=== PATIENT | female | born 1970 | race Hispanic/Latino ===

== ENCOUNTER 2017-11-30 20:00 | Emergency (ER) | payer MEDICAID, OTHER ==
[2017-11-30 20:49] LABS: APPEARANCE,URINE Clear (CLEAR); BILIRUBIN,URINE Negative (NEGATIVE); COLOR,URINE Yellow (YELLOW); GLUCOSE, URINE (UA) Negative (NEGATIVE); KETONES,URINE Trace mg/dL (NEGATIVE); LEUKOCYTE ESTERASE ,URINE Negative (NEGATIVE); NITRATE,URINE Negative (NEGATIVE); OCCULT BLOOD,URINE Large (NEGATIVE); PH,URINE 5.5 (5.0-8.0); PROTEIN,URINE POS 1+ (NEGATIVE); UROBILINOGEN,URINE 0.2 mg/dL (0.2-1.0)
[2017-11-30 20:56] LABS: BACTERIA,URINE None Seen /HPF (None Seen); MUCUS,URINE Many LPF (None Seen); SQUAMOUS EPITHELIAL CELL,UR 0-2 /LPF (0-2); WBC,URINE None Seen /HPF (0-1)
[2017-11-30] MEDS ORDERED: IBUPROFEN 600 MG TABLET ONE (21:12)
== END 2017-11-30 21:27 | disposition home or self-care (01) ==
LOC: EDH 20:00
DX: J11.1 Influenza due to unidentified influenza virus with other respiratory manifestations (principal)
CPT/HCPCS: 81001; 87804

== ENCOUNTER 2019-07-01 18:36 | Inpatient (IN) | payer MEDICAID, OTHER ==
[~2019-07-01] VITALS: Ht 157.5 cm; Wt 74.3 kg
[2019-07-01] MEDS ORDERED: CEFAZOLIN SODIUM 1 GM VIAL ONE (19:44)
[2019-07-01] MEDS ORDERED: ONDANSETRON HCL 4 MG/2 ML VIAL ONE (19:44)
[2019-07-01] MEDS ORDERED: SODIUM CHLORIDE 0.9% 50 ML IV ONE (19:45)
[2019-07-01] MEDS ORDERED: MORPHINE SULFATE 4 MG/1ML SYG ONE (19:45)
[2019-07-01] MEDS ORDERED: SODIUM CHLORIDE 0.9% 1000ML 1,000 ML IV ONE (19:45)
[2019-07-01] MEDS ORDERED: TETANUS/DIPHTHERIA TOXOID [ADULT] 0.5 ML VIAL IM ONE (19:47)
[2019-07-01 19:52] LABS: BASOPHILS % (AUTO) 0.3 % (0.0-5.0); EOSINOPHILS % (AUTO) 1.7 % (0.0-8.0); HEMATOCRIT 35.1 % (36-48); LYMPHOCYTES % (AUTO) 24.7 % (21.0-51.0); MEAN CORPUSCULAR HEMOGLOBIN 30.2 pg (27.0-33.0); MEAN CORPUSCULAR HGB CONC 34.5 g/dL (32.0-36.0); MEAN CORPUSCULAR VOLUME 87.7 fL (79-99); MONOCYTES % (AUTO) 7.2 % (3.0-13.0); NEUTROPHILS % (AUTO) 66.1 % (40.0-77.0); PLATELET COUNT (AUTO) 266 K/uL (130-400); RED BLOOD CELL COUNT(AUTO) 4.01 MIL/uL (4.00-5.50); RED CELL DISTRIBUTION WIDTH 13.8 % (11.0-15.5); WHITE BLOOD COUNT (AUTO) 7.1 K/uL (4.8-10.8)
[2019-07-01 20:01] LABS: CREATININE 0.8 mg/dL (0.5-1.5); POTASSIUM 3.2 mmol/L (3.5-5.1)
[2019-07-01 20:05] LABS: INR 0.97 (0.85-1.15); PARTIAL THROMBOPLASTIN TIME 25.6 SEC (26.3-35.5); PROTHROMBIN TIME 10.2 SEC (9.6-11.6)
[2019-07-01] MEDS ORDERED: POTASSIUM BICARB/CIT AC 25 MEQ TABLET.EFF ONE (20:51)
--- NOTE | 2019-07-01 22:45 | NUR ---
ADMISSION NOTE ADMIT TO ROOM 404 VIA W/C FROM ER. PATIENT AWAKE, ALERT, OX3,NO SOB, NO C/O PAIN AT THIS TIME, LEFT HAND MIDDLE FINGER DRESSING D/I, KEEP LEFT HAND ELEVATED ON PILLOW, PATIENTS SON AT BEDSIDE, TEACH PLAN OF CARE AND EXPECTED OUTCOME,TEACH PATIENT AND FAMILY NPO STATUS PAST MIDNITE,PATIENT VERBALIZES UNDERSTANDING VIA TEACH BACK, CALL [facility]OUNT AT REACH
[2019-07-01 22:50] VITALS: BP 145/75
[2019-07-02] VITALS (21 sets, daily range): BP systolic 106–158; BP diastolic 57–94
[2019-07-02] MEDS ORDERED: ACETAMINOPHEN-CODEINE 300/30MG TAB PO PRN (05:30)
[2019-07-02] MEDS: MORPHINE SULFATE 2 MG/ML 1ML SYG IVP PRN ×2 (05:49→15:05)
[2019-07-02] MEDS: CEFAZOLIN SODIUM 1 GM VIAL IVP SCH (09:06)
--- NOTE | 2019-07-02 13:10 | NUR ---
[facility] CM met with pt discussed dc plans. Pt is independent prior to admission, lives at home with spouse and daugher. Denies any equipments/services. Pt feels safe to go back home, spouse able to assist with transportation and needs as necessary. Pt is a selfpay, [facility] assisting, given community resources packet. DC plan to home once stable. CM to cont to follow up. Addendum: 07/02/19 at 1311 by SHELDON SORENSEN LVN CM Amended: Links added.
[2019-07-02] MEDS ORDERED: LIDOCAINE PF 2% 5ML ABBOJECT ONE (16:24)
[2019-07-02] MEDS ORDERED: MIDAZOLAM HCL 1 MG/ML 2ML VIAL ONE (16:24)
[2019-07-02] MEDS ORDERED: PROPOFOL 10 MG/ML 20ML VIAL IV ONE (16:25)
[2019-07-02] MEDS ORDERED: FENTANYL CITRATE PF 50 MCG/1 ML 2ML VIAL ONE (16:25)
[2019-07-02] MEDS ORDERED: GLYCOPYRROLATE 1 MG/5 ML SYRINGE ONE (16:42)
[2019-07-02] MEDS ORDERED: DEXAMETHASONE SOD PHOSPHATE 4 MG/ML 1ML VIAL ONE (16:43)
[2019-07-02] MEDS ORDERED: ONDANSETRON HCL 4 MG/2 ML VIAL ONE (16:43)
[2019-07-02] MEDS ORDERED: MEPERIDINE-PF 25 MG/ML SYG ONE (17:18)
[2019-07-03 04:00] VITALS: BP 105/54
[2019-07-03 07:00] VITALS: BP 119/68
[2019-07-03] MEDS: CEFAZOLIN SODIUM 1 GM VIAL IVP SCH (10:24)
[2019-07-03 11:00] VITALS: BP 109/57
[2019-07-03] MEDS ORDERED: CEPH-578 PO (11:06)
[2019-07-03] MEDS ORDERED: ACET1TAB12 PO (11:06)
--- NOTE | 2019-07-03 13:30 | NUR ---
PATIENT DISCHARGE PATIENT DISCHARGED, IV DISCONTINUED, BLEEDING CONTROLLED, CATHLON INTACT, PATIENT TOLERATED WITHOUT INCIDENT.
== END 2019-07-03 14:10 | disposition home or self-care (01) | DRG 517 ==
LOC: EDH 18:36 → EDHIP 18:37 → 4AH 21:23 → 3AH 07-03 06:18
PROVIDERS: ADMIT Surgery Plastic and Reconstructive Surgery; ATTEND Surgery Plastic and Reconstructive Surgery
PROC: 0PBV0ZZ Excision of Left Finger Phalanx, Open Approach (ICD-10-PCS; 2019-07-02)
PROC: 0HQQXZZ Repair Finger Nail, External Approach (ICD-10-PCS; 2019-07-02)
PROC: 3E0234Z Introduction of Serum, Toxoid and Vaccine into Muscle, Percutaneous Approach (ICD-10-PCS; 2019-07-02)
PROC: 0HCQXZZ Extirpation of Matter from Finger Nail, External Approach (ICD-10-PCS; principal; 2019-07-02 16:22)
DX: S62.633B Displaced fracture of distal phalanx of left middle finger, initial encounter for open fracture (principal); Y93.89 Activity, other specified; Y92.89 Other specified places as the place of occurrence of the external cause; Y99.8 Other external cause status; Z23 Encounter for immunization
CPT/HCPCS: 36415; 73140; 80048; 84702; 85025; 85610; 85730; 90714; G0378; J0690; J1100; J2001; J2175; J2250; J2270; J2405; J2704; J3010; J3490; J7030